=== PATIENT | female | born 1985 | race Two or more races ===

== ENCOUNTER → 2024-10-30 09:47 | Outpatient (REF) | payer OTHER, SELFPAY | LOC: RAD 09:47 | PROVIDERS: ATTENDING PHYSICIAN Nurse Practitioner Family | DX: M79.671 Pain in right foot (principal) | CPT/HCPCS: 73630 ==

== ENCOUNTER 2025-06-17 17:36 | Emergency (ER) | payer OTHER, SELFPAY ==
[2025-06-17 17:54] VITALS: BP 129/76
[2025-06-17 18:31] LABS: Hematocrit 37.6 % (37.0-47.0); Hemoglobin 12.7 g/dL (12.0-16.0); Mean Corp Hgb Conc. 33.8 g/dL (33.0-37.0); Mean Corpuscular Volume 85.6 fL (81.0-99.0); Nucleated Red Blood Cells % 0 %; Platelet Count 233 10^3/uL (130-400); Red Cell Dist. Width 12.0 % (11.5-14.5)
[2025-06-17 18:45] LABS: HCG, Serum Qualitative Screen Negative
[2025-06-17 18:50] LABS: ALT (SGPT) 22 U/L (0-35); AST (SGOT) 24 U/L (14-36); Albumin 4.5 g/dl (3.5-5.0); Alkaline Phosphatase 67 U/L (38-126); Blood Urea Nitrogen 19 mg/dl (7-17); Calcium 9.6 mg/dl (8.4-10.2); Carbon Dioxide 26 mmol/L (22-30); Chloride 103 mmol/L (98-107); Glucose 93 mg/dl (70-99); Potassium 4.5 mmol/L (3.5-5.1); Sodium 136 mmol/L (135-145); Total Protein 7.1 g/dl (6.3-8.2); eGFR > 60.00
--- NOTE | 2025-06-17 19:43 | ED.GENMED ---
History of Present Illness
General
Chief Complaint: Headache
Source: patient
Exam Limitations: none
Time Seen by Provider: 06/17/25 19:30
History of Present Illness
History of Present Illness:
39yoF with a history of OCD presenting for evaluation of a headache. Symptoms began about 48 hours ago. She reports a gradual onset of a right temporal and parietal headache that is described as throbbing. She also has some discomfort behind her
right eye. Pain seems to be the best in the mornings and gradually worsens throughout the day. Symptoms are worsened with loud noises. 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 No history of similar
headaches in the past. Headache is currently rated as a 3/10 in severity. She reports nausea but denies any vomiting. She is otherwise asymptomatic and denies any head trauma, rash, visual changes, dizziness, paresthesias, weakness, balance
issues.
Past History
Past History
ED Past Medical History: Psychiatric
ED Past Surgical History: None
Social History
Tobacco: Non-smoker
Alcohol: None
Drug: None
Living: with family
Phy Exam
General Physical Exam
General Presentation: well appearing and no apparent distress
General age: appears stated age
General Skin: warm and dry
General Habitus: normal
General Mental: alert
ENT Exam
ENT Exam: normocephalic and other
Additional ENT: No meningismus
Eye Exam
Eye Exam: PERRL, EOMI, conjunctiva normal and other (No afferent pupillary defect)
Pulmonary Exam
Pulmonary Exam: no respiratory distress
Neurological Exam
Neurological Exam: alert, no motor deficits and speech normal
[place] Coma Scale
Eye Opening: Spontaneous
Verbal Response: Oriented
Motor Response: Obeys Commands
GCS Total Score: 15
Skin Exam
Skin Exam: normal color and warm/dry
Psychiatric Exam
Psychiatric Exam: normal mood/affect
Course
Orders/Labs/Results
Orders:
Orders
06/17/25 17:57
Test Result ONCE
06/17/25 18:10
Complete Blood Count/With Diff Urgent
Comprehensive Metabolic Panel Urgent
HCG, Serum Qualitative Screen Urgent
06/17/25 19:43
CT Head W/o Iv Contrast Urgent
Comment:
Reason For Exam: new onset headache
06/17/25 20:47
0.9% Sodium Chloride 1000 ml [Nss] 1,000 ml IV BOLUS
Dexamethasone Sod Phosphate [Decadron] 10 mg IV NOW STA
Diphenhydramine [Benadryl] 25 mg IV NOW STA
Ketorolac [Toradol] 15 mg IV NOW STA
Magnesium Sulfate 2 Gram/50 ml [Magnesium Sulfate] 2 gram in 50 ml IV NOW
Metoclopramide [Reglan] 10 mg IV NOW STA
Abnormal Lab Results
06/17/25
18:10
BUN 19 H mg/dl
(7-17)
06/17/25 18:10
06/17/25 18:10
Vital Signs
Initial and Last Documented VS:
Initial Vital Signs
Temp Pulse Resp BP Pulse Ox
98.0 F 71 16 129/76 98
06/17/25 17:54 06/17/25 17:54 06/17/25 17:54 06/17/25 17:54 06/17/25 17:54
Last Documented Vital Signs
Temp Pulse Resp BP Pulse Ox
98.0 F 71 16 129/76 98
06/17/25 17:54 06/17/25 17:54 06/17/25 17:54 06/17/25 17:54 06/17/25 19:44
MDM/Problems Addressed
Differential Diagnosis Includes:
39yoF here with R temporal/parietal headache x 2 days. +Nausea and phonophobia. No history of similar headaches in the past. VSS. Patient well appearing in no distress. No nuchal rigidity or focal neuro deficits noted. Differential diagnosis
includes: migraine, tension headache, cluster headache, early shingles, consider intracranial mass
Initial ED plan: Labs obtained in triage which are unremarkable. Will check CT head given new onset headache. She declines analgesics.
*Pulse Oximetry
SaO2: 98
Oxygen Mode of Delivery: Room air
Patient hypoxic: no
*Critical Care Note
Total Time (30-74mins, 75-104mins- exclusive of procedures): Not Applicable
Update Note
Update Note:
CT head negative for acute findings. On reassessment, patient now reporting worsening headache and she is now agreeable to migraine cocktail. Patient reassessed 1 hour after medications and she is feeling significantly improved and headache has
completely resolved. Suspect migraine although she has no formal diagnosis of this. Advised close f/u with PCP and ED return precautions reviewed. Patient in agreement with plan and was discharged in stable condition.
ED Attending Note
-
Portions of this chart may have been created with voice recognition software.� Occasional wrong word or��sound alike� substitutions may have occurred due to the inherent limitations of voice recognition software.
Discharge Plan
Departure
Patient Disposition: Home (Routine Discharge)
Date of Disposition: 06/17/25
Time of Disposition: 22:19
Patient with high blood pressure during this ER visit?: No
Discharge Problem:
Acute nonintractable headache
Instructions: Headache, Adult (DC)
Referrals:
Thom Lopez MD [Family Provider, Family Practice]
Activity Restrictions/Additional Instructions:
Drink plenty of fluids and stay hydrated. You may take Excedrin as needed for headaches.
Please call tomorrow to schedule a follow-up appointment with your family doctor. Return to the ER with any new or worsening neurologic symptoms.
Interventions
Interventions:
*Risk Screen - Suicide Last Done: 06/17/25 17:54
*General Assessment Last Done: 06/17/25 17:54
*Neglect/Abuse Screening Last Done: 06/17/25 17:54
*ED COVID-19 Vaccine History Last Done: 06/17/25 17:54
*ED Influenza Vaccine History Last Done: 06/17/25 17:54
[facility] Fall Risk Assessment Tool Last Done: 06/17/25 20:44
*Nursing Disposition Last Done: 06/17/25 22:30
ED- Neurological Assessment Last Done: 06/17/25 20:00
Discharge Date and Time
Discharge Date/Time: 06/17/25 22:31
Print Language: LITHUANIAN
[2025-06-17] MEDS: TORADOL 15 MG IV (21:10)
[2025-06-17] MEDS: DECADRON 10 MG IV (21:11)
[2025-06-17] MEDS: REGLAN 10 MG IV (21:13)
[2025-06-17] MEDS: NSS 1000 IV (21:14)
[2025-06-17] MEDS: BENADRYL 25 MG IV (21:14)
[2025-06-17] MEDS: MAGNESIUM SULFATE 50 IV (21:17)
== END 2025-06-17 22:31 | disposition home or self-care (01) ==
LOC: EMR 17:36
PROVIDERS: Emergency Medicine; EMERGENCY PHYSICIAN Emergency Medicine; FAMILY PHYSICIAN Family Medicine
DX: R51.9 Headache, unspecified (principal)
CPT/HCPCS: 96375; 96365; 96361; 99284; 70450; 80053; 84703; 85025

== ENCOUNTER → 2025-06-26 11:32 | Outpatient (REF) | payer OTHER, SELFPAY | LOC: RAD 11:32 | PROVIDERS: ATTENDING PHYSICIAN Physician Assistant; FAMILY PHYSICIAN Family Medicine | DX: M25.511 Pain in right shoulder (principal); G89.29 Other chronic pain | CPT/HCPCS: 73030 ==